=== PATIENT | female | born 1985 | race Two or more races ===

== ENCOUNTER 2017-11-13 07:56 | Emergency (ER) | payer OTHER ==
[2017-11-13 08:00] VITALS: TEMP 98; BMI 45.8
--- NOTE | 2017-11-13 08:05 | PDOC ---
History of Present Illness - General Chief Complaint: Pain Stated Complaint: LOWER ABD PAIN Time Seen by Provider: 11/13/17 08:04 - History of Present Illness Initial Comments: 11/13/17 08:04 Ms. Mcdonald is a 32 yo female w/ pmh of hyperthyroidism (not currently taking medications as she has run out, however has appt with PCP 2 weeks from today scheduled) who presents c/o a 3 day history of left sided abdominal pain she reports feels "like a bag that bursts" intermittently every 10 minutes or so. She reports this pain gets worse when she walks around. Denies any recent changes in urinating or bowel movements, but reports this started after she held her urine for a long time. The patient denies chest pain, shortness of breath, headache and dizziness. Denies fever, chills, nausea, vomit, diarrhea and constipation. Denies dysuria, frequency, urgency and hematuria. Allergies: NKDA Past History - Past Medical History Allergies/Adverse Reactions: Allergies Allergy/AdvReac Type Severity Reaction Status Date / Time No Known Allergies Allergy Verified 11/13/17 07:58 Home Medications: Ambulatory Orders Levothyroxine [Synthroid -] 88 mcg PO DAILY 03/11/14 Cephalexin [Keflex] 500 mg PO BID #10 capsule 11/13/17 Asthma: No Cancer: No Cardiac Disorders: No COPD: No Diabetes: No HTN: No Seizures: No Thyroid Disease: No - Surgical History Cholecystectomy: Yes - Immunization History Immunization Up to Date: Yes - Suicide/Smoking/Psychosocial Hx Smoking History: Never smoked Have you smoked in the past 12 months: No Information on smoking cessation initiated: No Hx Alcohol Use: No Drug/Substance Use Hx: No Substance Use Type: None Hx Substance Use Treatment: No Review of Systems - Review of Systems Comments:: 11/13/17 08:04 GENERAL/CONSTITUTIONAL: No fever or chills. No weakness. HEAD, EYES, EARS, NOSE AND THROAT: No change in vision. No ear pain or discharge. No sore throat. CARDIOVASCULAR: No chest pain or shortness of breath RESPIRATORY: No cough, wheezing, or hemoptysis. GASTROINTESTINAL: +LLQ pain as described. No nausea, vomiting, diarrhea or constipation. GENITOURINARY: No dysuria, frequency, or change in urination. MUSCULOSKELETAL: No joint or muscle swelling or pain. No neck or back pain. SKIN: No rash NEUROLOGIC: No headache, vertigo, loss of consciousness, or change in strength/ sensation. ENDOCRINE: No increased thirst. No abnormal weight change HEMATOLOGIC/LYMPHATIC: No anemia, easy bleeding, or history of blood clots. ALLERGIC/IMMUNOLOGIC: No hives or skin allergy. 11/13/17 08:21 *Physical Exam - Vital Signs Last Vital Signs Temp Pulse Resp BP Pulse Ox 98.0 F 90 18 130/68 100 11/13/17 07:59 11/13/17 07:59 11/13/17 07:59 11/13/17 07:59 11/13/17 07:59 - Physical Exam Comments: 11/13/17 08:05 GENERAL: Awake, alert, and fully oriented, in no acute distress HEAD: No signs of trauma, normocephalic, atraumatic EYES: PERRLA, EOMI, sclera anicteric, conjunctiva clear ENT: Auricles normal inspection, hearing grossly normal, nares patent, oropharynx clear without exudates. Moist mucosa NECK: Normal ROM, supple, no lymphadenopathy, JVD, or masses LUNGS: No distress, speaks full sentences, clear to auscultation bilaterally HEART: Regular rate and rhythm, normal S1 and S2, no murmurs, rubs or gallops, peripheral pulses normal and equal bilaterally. ABDOMEN: +LLQ TTP, otherwise soft, nontender, normoactive bowel sounds. No guarding, no rebound. No masses EXTREMITIES: Normal inspection, Normal range of motion, no edema. No clubbing or cyanosis. NEUROLOGICAL: Cranial nerves II through XII grossly intact. Normal speech, normal gait, no focal sensorimotor deficits SKIN: Warm, Dry, normal turgor, no rashes or lesions noted. : ED Treatment Course - LABORATORY CBC & Chemistry Diagram: 11/13/17 08:34 11/13/17 08:34 Medical Decision Making - Medical Decision Making 11/13/17 09:06 Ms. Reyes is a 32 yo female w/ pmh as described who presents for evaluation of left sided abdominal pain for the last 3 days. Patient exam concerning for left adnexal tenderness concerning for torsion. Labs/urine/transvaginal US ordered for evaluation. 11/13/17 11:23 US negative for torsion. UA suspicious for UTI as below. Treatment started with keflex in ER and Rx sent to patient's pharmacy for continued treatment. Discharging patient to home. Laboratory Results - last 24 hr 11/13/17 11/13/17 11/13/17 08:34 08:34 08:34 WBC 10.5 H RBC 4.63 Hgb 14.3 D Hct 41.1 D MCV 88.8 MCH 31.0 MCHC 34.9 RDW 13.9 Plt Count 259 MPV 8.2 Absolute Neuts (auto) 7.0 Neutrophils % 66.9 Lymphocytes % 25.0 Monocytes % 6.1 Eosinophils % 1.6 Basophils % 0.4 Nucleated RBC % 0 Sodium 136 Potassium 4.3 Chloride 104 Carbon Dioxide 28 Anion Gap 4 L BUN 9 Creatinine 0.6 Creat Clearance w eGFR > 60 Random Glucose 100 Calcium 8.9 Total Bilirubin 1.6 H D AST 45 H ALT 78 Alkaline Phosphatase 81 Total Protein 7.8 Albumin 4.0 TSH Urine Color Dk yellow Urine Appearance Cloudy Urine pH 6.0 Ur Specific [place] 1.029 Urine Protein 1+ H Urine Glucose (UA) Negative Urine Ketones Negative Urine Blood Negative Urine Nitrite Positive Urine Bilirubin Negative Urine Urobilinogen 4.0 e.u/dl H Ur Leukocyte Esterase Negative Urine WBC (Auto) 13 Urine RBC (Auto) 1 Ur Epithelial Cells Moderate Urine Bacteria Many Urine Mucus Many Urine HCG, Qual Negative 11/13/17 08:34 WBC RBC Hgb Hct MCV MCH MCHC RDW Plt Count MPV Absolute Neuts (auto) Neutrophils % Lymphocytes % Monocytes % Eosinophils % Basophils % Nucleated RBC % Sodium Potassium Chloride Carbon Dioxide Anion Gap BUN Creatinine Creat Clearance w eGFR Random Glucose Calcium Total Bilirubin AST ALT Alkaline Phosphatase Total Protein Albumin TSH 12.70 H Urine Color Urine Appearance Urine pH Ur Specific [place] Urine Protein Urine Glucose (UA) Urine Ketones Urine Blood Urine Nitrite Urine Bilirubin Urine Urobilinogen Ur Leukocyte Esterase Urine WBC (Auto) Urine RBC (Auto) Ur Epithelial Cells Urine Bacteria Urine Mucus Urine HCG, Qual *DC/Admit/Observation/Transfer Diagnosis at time of Disposition: UTI (urinary tract infection) Qualifiers: Urinary tract infection type: site unspecified Hematuria presence: without hematuria Qualified Code(s): N39.0 - Urinary tract infection, site not specified - Discharge Dispostion Disposition: HOME - Prescriptions Prescriptions: Cephalexin [Keflex] 500 mg PO BID #10 capsule - Referrals Referrals: Carmen Mckeon [Primary Care Provider] - - Patient Instructions Printed Discharge Instructions: DI for Urinary Tract Infection (UTI) Additional Instructions: Please follow-up with primary care provider for further evaluation of abdominal pain. Take all medication as proscribed. Return to ER if any fever, chills, increased pain, or other concerning symptoms. - Post Discharge Activity
--- NOTE | 2017-11-13 08:30 | PDOC ---
Attending Attestation - Resident Resident Name: Benjamin Ott - ED Attending Attestation I have performed the following: I have examined & evaluated the patient, The case was reviewed & discussed with the resident, I agree w/resident's findings & plan, Exceptions are as noted
[2017-11-13 08:58] LABS: BASO % 0.4 % (0-2.0); EOS % 1.6 % (0-4.5); HEMATOCRIT 41.1 % (32.4-45.2); HEMOGLOBIN 14.3 GM/dL (10.7-15.3); MCHC 34.9 g/dl (32.0-36.0); MEAN CELL VOLUME 88.8 fl (80-96); MEAN PLT VOLUME 8.2 fl (7.5-11.1); MONO % 6.1 % (3.8-10.2); NEUT % 66.9 % (42.8-82.8); PLATELET COUNT 259 K/MM3 (134-434); RBC 4.63 M/mm3 (3.60-5.2); RDW 13.9 % (11.6-15.6); WHITE BLOOD COUNT 10.5 K/mm3 (4.0-10.0)
[2017-11-13 09:19] LABS: HCG,QUALITATIVE URINE NEGATIVE
[2017-11-13 09:24] LABS: URINE APPEARANCE CLOUDY; URINE BILIRUBIN NEGATIVE (<2.0 mg/dL); URINE BLOOD NEGATIVE (NEGATIVE); URINE GLUCOSE (UA) NEGATIVE (NEGATIVE); URINE KETONE NEGATIVE (NEGATIVE); URINE LEUK ESTERASE NEGATIVE (NEGATIVE); URINE NITRITE POSITIVE (NEGATIVE); URINE UROBILINOGEN 4.0 E.U/dl mg/dL (0.2-1.0)
[2017-11-13 09:25] LABS: ANION GAP 4 (8-16); BILIRUBIN,TOTAL 1.6 mg/dL (0.2-1.0); BLOOD UREA NITROGEN 9 mg/dL (7-18); CALCIUM 8.9 mg/dL (8.5-10.1); CHLORIDE 104 mmol/L (98-107); CO2 28 mmol/L (21-32); CREATININE 0.6 mg/dL (0.55-1.02); GLUCOSE,RANDOM 100 mg/dL (74-106); POTASSIUM 4.3 mmol/L (3.5-5.1); SGOT/AST 45 U/L (15-37); SGPT/ALT 78 U/L (12-78); SODIUM 136 mmol/L (136-145); TOT PROT 7.8 g/dl (6.4-8.2)
[2017-11-13 09:26] LABS: ALK PHOS 81 U/L (45-117); URINE COLOR DK YELLOW; URINE PROTEIN 1+ (NEGATIVE)
[2017-11-13 09:46] LABS: EPI CELLS MODERATE /HPF (FEW); URINE BACTERIA MANY /hpf (NONE SEEN); URINE MUCUS MANY
[2017-11-13] MEDS ORDERED: CEPHALEXIN MONOHYDRATE 500 MG CAPSULE (UD) PO ONE (10:07)
[2017-11-13] MEDS ORDERED: CEPHALEXIN MONOHYDRATE 500 MG CAPSULE (UD) ONE (10:12)
[2017-11-13 11:59] VITALS: BP 128/82; PULSE 78
--- NOTE | 2017-11-15 07:56 | PDOC ---
Patient Follow-up (Call Back) - Post ED Follow - Up Disposition at time of original discharge: HOME Reason for Call Back: Abnwl. Microbiology (Urine culture preliminary report shows group D strep or enterococcus. Patient currently on Keflex. Will await final report.)
--- NOTE | 2017-11-16 07:22 | PDOC ---
Patient Follow-up (Call Back) - Post ED Follow - Up Disposition at time of original discharge: HOME Reason for Call Back: Abnwl. Microbiology (Urine culture final report shows enterococcus faecalis which is not sensitive to cephalosporins. Called and left message for patient to call back. Patient had sensitivity to Macrobid and Levaquin.)
--- NOTE | 2017-11-16 09:28 | PDOC ---
Patient Follow-up (Call Back) - Post ED Follow - Up Disposition at time of original discharge: HOME - Disposition Additional Instructions/Notes: patient called back. UTI not sensitive to her current abx. Will send rx for macrobid. Patient will bead picker today, d/c current abx and start macrobid
== END 2017-11-13 11:59 | disposition home or self-care (01) ==
LOC: JER 07:56
DX: N39.0 Urinary tract infection, site not specified (principal)
CPT/HCPCS: 36415; 76830-TC; 80053; 81003; 81015; 84443; 84703; 85025; 87086; 87186; 99282-25

== ENCOUNTER 2018-12-10 15:50 | Emergency (ER) | payer OTHER ==
--- NOTE | 2018-12-10 15:58 | PDOC ---
Rapid Medical Evaluation Chief Complaint: Lightheaded Medical Evaluation: Allergies Allergy/AdvReac Type Severity Reaction Status Date / Time No Known Allergies Allergy Verified 11/13/17 07:58 12/10/18 15:55 The patient is a 33 y/o F who presents with 3 days of dizziness. she states that the room is spinning around her even when she is lying down. Admits to associated vomiting. This is never happened to her before. Exam patient sitting, gait not observed. In mild distress appears uncomfortable. ANO 3 Orders EKG, basic labs, urine Patient to proceed to the ER for further evaluation. Discharge Disposition - Diagnosis Dizziness - Referrals - Patient Instructions - Post Discharge Activity
[2018-12-10 16:06] VITALS: BP 111/67; PULSE 76; TEMP 98; BMI 46.8
[2018-12-10 16:15] LABS: BASO % 0.8 % (0-2.0); EOS % 1.6 % (0-4.5); HEMATOCRIT 42.1 % (32.4-45.2); HEMOGLOBIN 14.6 GM/dL (10.7-15.3); LYMPH % 21.3 % (8-40); MCH 31.1 pg (25.7-33.7); MCHC 34.7 g/dl (32.0-36.0); MEAN CELL VOLUME 89.7 fl (80-96); MEAN PLT VOLUME 8.3 fl (7.5-11.1); MONO % 4.3 % (3.8-10.2); PLATELET COUNT 249 K/MM3 (134-434); RBC 4.69 M/mm3 (3.60-5.2); RDW 14.4 % (11.6-15.6); WHITE BLOOD COUNT 7.1 K/mm3 (4.0-10.0)
[2018-12-10 16:55] LABS: BILIRUBIN,TOTAL 1.1 mg/dL (0.2-1); BLOOD UREA NITROGEN 10.4 mg/dL (7-18); CREATININE 0.6 mg/dL (0.55-1.3); POTASSIUM 4.5 mmol/L (3.5-5.1); TOT PROT 8.1 g/dl (6.4-8.2)
[2018-12-10] MEDS ORDERED: SODIUM CHLORIDE 0.9% 500 ML INFUS.BAG IV ONE (17:48)
[2018-12-10] MEDS ORDERED: MECLIZINE HCL 12.5 MG TABLET PO ONE (17:48)
--- NOTE | 2018-12-10 18:14 | PDOC ---
History of Present Illness - General Chief Complaint: Lightheaded Stated Complaint: DIZZNESS Time Seen by Provider: 12/10/18 15:55 History Source: Patient Exam Limitations: No Limitations - History of Present Illness Initial Comments: 12/10/18 17:59 Carmen Reyes is a 33F with PMH of hypothyroidism who presents with dizziness with nausea and vomiting. Reports being in a normal state of health prior to Friday, when she was brushing her teeth at night and began to feel as if the room is spinning, vomited once. Laid flat in bed and recovered overnight, was feeling more normal the next day, able to drive and do chores. This morning woke up with worsening dizziness and nausea and vomited x4 which prompted visit to ED. Describes dizziness as vertigo, as if the room is spinning around her. Has never had this sensation before, denies any actions or activities that could prompt it. Denies fever/chills, headache, tinnitus, chest pain, palpitations, SOB, cough. No recent abnormal food exposures, PO intake good until first episode, denies abd pain, constipation/diarrhea. No dysuria/hematuria/frequency. Describes being able to walk with some assistance. PMH hypothyroidism, has not taken levothyroxine in ~8 months due to no f/u with endo, describes being cold all the time with some weight gain and difficulty losing weight. No other PMH or medications. Past History - Past Medical History Allergies/Adverse Reactions: Allergies Allergy/AdvReac Type Severity Reaction Status Date / Time No Known Allergies Allergy Verified 12/10/18 16:04 Home Medications: Ambulatory Orders Meclizine HCl [Antivert -] 12.5 mg PO TID #15 tablet 12/10/18 Asthma: No Cancer: No Cardiac Disorders: No COPD: No Diabetes: No HTN: No Seizures: No Thyroid Disease: No - Surgical History Cholecystectomy: Yes - Immunization History Immunization Up to Date: Yes - Suicide/Smoking/Psychosocial Hx Smoking History: Never smoked Have you smoked in the past 12 months: No Information on smoking cessation initiated: No Hx Alcohol Use: No Drug/Substance Use Hx: No Substance Use Type: None Hx Substance Use Treatment: No Review of Systems - Review of Systems Able to Perform ROS?: Yes Constitutional: Yes: See HPI, Chills, Loss of Appetite. No: Diaphoresis, Fever , Weakness HEENTM: Yes: See HPI, Double Vision. No: Blurred Vision, Recent change in vision, Tinnitus, Hearing Loss Respiratory: Yes: See HPI. No: Cough, Orthopnea, Shortness of Breath, Productive cough Cardiac (ROS): Yes: See HPI. No: Chest Pain, Edema, Lightheadedness, Palpitations, Syncope, Chest Tightness ABD/GI: Yes: See HPI, Nausea, Poor Appetite, Poor Fluid Intake, Vomiting. No: Constipated, Diarrhea, Abdominal cramping : No: Burning, Dysuria, Discharge, Frequency, Hematuria Musculoskeletal: No: Back Pain, Muscle Pain, Muscle Weakness Integumentary: No: Pallor, Rash, Sweating Neurological: Yes: Unsteady Gait, Dizziness. No: Headache, Numbness, Paresthesia, Tremors Endocrine: Yes: Intolerance to Cold *Physical Exam - Vital Signs Last Vital Signs Temp Pulse Resp BP Pulse Ox 98.0 F 76 16 111/67 100 12/10/18 15:50 12/10/18 15:50 12/10/18 15:50 12/10/18 15:50 12/10/18 15:50 - Physical Exam General Appearance: Yes: Nourished, Appropriately Dressed, Apparent Distress, Mild Distress, Obese HEENT: positive: ALEC, Normal ENT Inspection, Normal Voice, Symmetrical. negative: Scleral Icterus (R), Scleral Icterus (L), Rhinorrhea, Sinus Tenderness Neck: positive: Trachea midline, Supple Respiratory/Chest: positive: Lungs Clear, Normal Breath Sounds. negative: Chest Tender, Respiratory Distress, Rales, Rhonchi, Wheezing Cardiovascular: positive: Regular Rhythm, Regular Rate. negative: Edema, Murmur Gastrointestinal/Abdominal: positive: Normal Bowel Sounds, Soft. negative: Tender, Hernia, Mass Musculoskeletal: positive: Normal Inspection. negative: CVA Tenderness Extremity: positive: Normal Capillary Refill, Normal Inspection, Normal Range of Motion. negative: Tender Integumentary: positive: Normal Color, Dry, Warm. negative: Jaundice Neurologic: positive: physiatrist II-XII NML intact, Fully Oriented, Alert, Normal Mood/ Affect, Normal Response, Motor Strength 5/5 ED Treatment Course - LABORATORY CBC & Chemistry Diagram: 12/10/18 16:03 12/10/18 16:08 - ADDITIONAL ORDERS Additional order review: Laboratory Results 12/10/18 12/10/18 16:57 16:08 Sodium 139 Potassium 4.5 Chloride 107 Carbon Dioxide 27 Anion Gap 5 L BUN 10.4 Creatinine 0.6 Est GFR (CKD-EPI)AfAm 139.78 Est GFR (CKD-EPI)NonAf 120.61 Random Glucose 92 Calcium 9.0 Total Bilirubin 1.1 H AST 71 H ALT 128 H Alkaline Phosphatase 81 Total Protein 8.1 Albumin 4.0 Serum , Qual Negative 12/10/18 16:03 RBC 4.69 MCV 89.7 MCHC 34.7 RDW 14.4 MPV 8.3 Neutrophils % 72.0 Lymphocytes % 21.3 Monocytes % 4.3 Eosinophils % 1.6 Basophils % 0.8 Medical Decision Making - Medical Decision Making 12/10/18 20:42 Carmen Reyes is a 33F with PMH hypothyroidism presenting with dizziness. Given presentation with vertigo-like symptoms, lack of palpitations/chest pain/ cough/SOB, and stable VS, unlikely to be cardiac in origin. Will evaluate for electrolyte imbalance via CMP, anemia via CBC, arrhythmia via ECG, and thyroid imbalance with TSH. Evaluation for intracranial mass or bleed via CT head. Will trial meclizine and IVF 1L NS bolus for nausea. Patient reports feeling worse after CT scan, now with headache. Will trial acetaminophen 1g IV with 10mg metaclopramide for further headache control. Received valium for further management of vertigo 12/10/18 23:44 Re-evaluated. Patient is no longer feeling headache or vertigo. Able to stand and walk across room unassisted and without dizziness/nausea. Will discharge home with f/u neurology, will provide meclizine script for nausea if needed. *DC/Admit/Observation/Transfer Diagnosis at time of Disposition: Dizziness - Discharge Dispostion Disposition: HOME Condition at time of disposition: Improved Decision to Admit order: No - Prescriptions Prescriptions: Meclizine HCl [Antivert -] 12.5 mg PO TID #15 tablet - Referrals Referrals: Carmen Mckeon [Primary Care Provider] - Polo Cardenas MD [Staff Physician] - - Patient Instructions Printed Discharge Instructions: DI for Dizziness-Nonvertigo, Vertigo Additional Instructions: Please return to an emergency room for any recurrent, new, or worsening symptoms. Today you were evaluated for dizziness. We checked your blood for problems with electrolytes or anemia or infection, but all results were normal. We performed an EKG to assess your heart rhythm, but it was normal. We also did a CT scan of your head to check for any issues inside your brain, but everything was normal. You were given a medication called meclizine as well as some saline for your nausea. We also give you some tylenol, reglan, and Valium for your headache and dizziness, and you felt improved after this treatment. You are getting a referral to Dr. Cardenas, a neurologist. Please see this doctor if you continue to have dizziness or worsening nausea. If you have worsening nausea to the point that you cannot walk or function, or if you get a fever, pain, or headache, please return to an emergency room immediately. - Post Discharge Activity
[2018-12-10] MEDS ORDERED: MECLIZINE HCL 12.5 MG TABLET ONE (18:28)
--- NOTE | 2018-12-10 18:43 | PDOC ---
Documentation entered by Gladys Callahan SCRIBE, acting as scribe for Debbie Lemon MD. Debbie Lemon MD: This documentation has been prepared by the [place] staton Nirvannie, SCRIBE, under my direction and personally reviewed by me in its entirety. I confirm that the documentation accurately reflects all work, treatment, procedures, and medical decision making performed by me. Attending Attestation - Resident Resident Name: JulianStanley - ED Attending Attestation I have performed the following: I have examined & evaluated the patient, The case was reviewed & discussed with the resident, I agree w/resident's findings & plan - HPI HPI: 12/10/18 18:02 The patient is a 33 year old female, with a significant past medical history of hypothyroidism (noncompliant with medications), who presents to the emergency department with, 3 days of intermittent dizziness. She describes her dizziness as room spinning worsened when standing up with associated nausea and vomiting. She denies recent fevers or chills. She denies recent diarrhea or constipation. She denies recent dysuria, frequency, urgency or hematuria. She denies recent chest pain or shortness of breath. Allergies: NKDA Primary Care Physician: Dr. Mckeon - Physicial Exam PE: 12/10/18 18:31 GENERAL: The patient is in no acute distress. ENT: Ears normal, nares patent, oropharynx clear without exudates. Moist mucous membranes. NECK: Normal range of motion, supple, non tender LUNGS: Breath sounds equal, clear to auscultation bilaterally. No wheezes, and no crackles. HEART:Regular rate and rhythm, normal S1 and S2 without murmur, rub or gallop. ABDOMEN: Soft, nontender, normoactive bowel sounds. EXTREMITIES: Normal range of motion, no edema. NEUROLOGICAL: Cranial nerves II through XII grossly intact. Normal speech. (+) horizontal nystagmus no dysmetria, no dysdiadokinesis did not ambulate at this time SKIN: Warm, Dry, normal turgor, no rashes or lesions noted. - Medical Decision Making 12/10/18 16:17 EKG- NSR rate of 66 bpm, axis nml, intervals nml, no st elevation or depression , t waves upright 07/04/19 18:41 33 yo F presenting with vertigo Symptoms began 3 days ago No symptoms yesterday Awoke with symptoms today Mild headache (+) nausea (+) vomiting no weakness No prior episodes like this No recent URI DD: BPPV, Labrynthitis, Menier's disease, acoustic neuroma, vertebral dissection ( unlikely), cerebellar cva (unlikely) Will do: Labs Meclizine CT If symptoms persist or worsen consider CTA head and neck/OBS Pt signed out to overnight team Clinical impression: vertigo, initial presentation
[2018-12-10] MEDS ORDERED: ACETAMINOPHEN 1000 MG/100 ML VIAL (NON FORMULARY) IVPB ONE (19:14)
[2018-12-10] MEDS ORDERED: METOCLOPRAMIDE HCL INJECTION 10 MG/2 ML VIAL IVPB ONE (19:14)
[2018-12-10] MEDS ORDERED: METOCLOPRAMIDE HCL INJECTION 10 MG/2 ML VIAL ONE (20:16)
[2018-12-10] MEDS ORDERED: ACETAMINOPHEN INJECTION 100 ML IVPB ONE (20:16)
[2018-12-10] MEDS ORDERED: diazePAM 2 MG TABLET PO ONE (20:57)
[2018-12-10] MEDS ORDERED: SODIUM CHLORIDE 1,000 ML IV STA (20:57)
[2018-12-10] MEDS ORDERED: diazePAM 2 MG TABLET ONE (21:05)
--- NOTE | 2018-12-11 11:24 | EKG ---
Test Reason : Blood Pressure : / mmHG Vent. Rate : 066 BPM Atrial Rate : 066 BPM P-R Int : 158 ms QRS Dur : 110 ms QT Int : 406 ms P-R-T Axes : 013 038 025 degrees QTc Int : 425 ms NORMAL SINUS RHYTHM INCOMPLETE RIGHT BUNDLE BRANCH BLOCK ABNORMAL ECG NO PREVIOUS ECGS AVAILABLE Confirmed by ALESIA SERVIN MD ([id number]) on 12/11/2018 11:24:09 AM Referred By: Confirmed By:ALESIA SERVIN MD
== END 2018-12-11 00:58 | disposition home or self-care (01) ==
LOC: JER 15:50
PROC: 3E0337Z Introduction of Electrolytic and Water Balance Substance into Peripheral Vein, Percutaneous Approach (ICD-10-PCS; principal; 2018-12-10)
PROC: 3E033GC Introduction of Other Therapeutic Substance into Peripheral Vein, Percutaneous Approach (ICD-10-PCS; 2018-12-10)
DX: R42 Dizziness and giddiness (principal); E03.9 Hypothyroidism, unspecified
CPT/HCPCS: 36415; 70450-TC; 80053; 84443; 84703; 85025; 93005; 93010; 99283-25; J7030

== ENCOUNTER 2022-03-06 11:39 | Emergency (ER) | payer OTHER ==
[2022-03-06 11:55] VITALS: BP 135/73; PULSE 88; RESP 17; TEMP 98.1; BMI 50.8
[2022-03-06 13:04] LABS: PH,URINE 6.5 (5.0-8.0); URINE APPEARANCE CLOUDY; URINE BILIRUBIN NEGATIVE (NEGATIVE); URINE COLOR YELLOW; URINE GLUCOSE (UA) NEGATIVE (NEGATIVE); URINE KETONE NEGATIVE (NEGATIVE); URINE LEUK ESTERASE NEGATIVE (NEGATIVE); URINE NITRITE NEGATIVE (NEGATIVE); URINE PROTEIN NEGATIVE (NEGATIVE)
[2022-03-06 13:06] LABS: HCG,QUALITATIVE URINE Negative
[2022-03-06] MEDS ORDERED: SODIUM CHLORIDE 1,000 ML IV STA (13:29)
[2022-03-06] MEDS ORDERED: ACETAMINOPHEN 1000 MG/100 ML BAG IVPB ONE (13:29)
[2022-03-06] MEDS ORDERED: ACETAMINOPHEN INJECTION 100 ML IVPB ONE (13:35)
[2022-03-06 14:41] LABS: BASO % 0.6 % (0-2.0); EOS % 1.7 % (0-4.5); HEMATOCRIT 41.1 % (32.4-45.2); HEMOGLOBIN 14.7 GM/dL (10.7-15.3); LYMPH % 22.1 % (8-40); MCH 32.2 pg (25.7-33.7); MCHC 35.8 g/dl (32.0-36.0); MEAN CELL VOLUME 90.1 fl (80-96); MEAN PLT VOLUME 8.6 fl (7.5-11.1); MONO % 4.2 % (3.8-10.2); NEUT % 71.4 % (42.8-82.8); PLATELET COUNT 281 10^3/uL (134-434); RBC 4.56 M/mm3 (3.60-5.2); RDW 13.8 % (11.6-15.6); WHITE BLOOD COUNT 10.1 K/mm3 (4.0-10.0)
[2022-03-06 14:54] LABS: CALCIUM 9.5 mg/dL (8.5-10.1)
[2022-03-06 14:55] LABS: ALBUMIN 4.1 g/dl (3.4-5.0); BLOOD UREA NITROGEN 7.5 mg/dL (7-18)
[2022-03-06 14:58] LABS: CREATININE 0.6 mg/dL (0.55-1.3)
[2022-03-06 15:00] LABS: BILIRUBIN,TOTAL 1.6 mg/dL (0.2-1); TOT PROT 8.1 g/dl (6.4-8.2)
== END 2022-03-06 16:30 | disposition home or self-care (01) ==
LOC: JERFT 11:39 → JER 11:39 → JERFT 16:30
PROC: 3E0333Z Introduction of Anti-inflammatory into Peripheral Vein, Percutaneous Approach (ICD-10-PCS; principal; 2022-03-06)
PROC: 3E0337Z Introduction of Electrolytic and Water Balance Substance into Peripheral Vein, Percutaneous Approach (ICD-10-PCS; 2022-03-06)
DX: K57.92 Diverticulitis of intestine, part unspecified, without perforation or abscess without bleeding (principal)
CPT/HCPCS: 36415; 74177-TC; 80053; 81003; 83690; 84703; 85025; 87086; 99285-25; Q9967

== ENCOUNTER 2023-06-25 09:12 | Emergency (ER) | payer OTHER ==
[2023-06-25 09:19] VITALS: BP 126/72; PULSE 79; RESP 17; TEMP 98.1; BMI 48.8
== END 2023-06-25 10:24 | disposition home or self-care (01) ==
LOC: JERFT 09:12 → JER 09:12 → JERFT 10:24
DX: M25.562 Pain in left knee (principal); W01.0XXA Fall on same level from slipping, tripping and stumbling without subsequent striking against object, initial encounter
CPT/HCPCS: 73562-TC-LT-FY; 99283-25

== ENCOUNTER 2023-12-08 21:50 | Emergency (ER) | payer OTHER ==
[2023-12-08 22:10] VITALS: BP 125/73; PULSE 94; RESP 20; TEMP 98.5; BMI 51.7
[2023-12-08 23:40] LABS: BASO % 0.9 % (0-2.0); EOS % 3.7 % (0-4.5); HEMATOCRIT 38.1 % (32.4-45.2); HEMOGLOBIN 13.5 GM/dL (10.7-15.3); LYMPH % 37.2 % (8-40); MCH 31.7 pg (25.7-33.7); MCHC 35.5 g/dl (32.0-36.0); MEAN CELL VOLUME 89.3 fl (80-96); MEAN PLT VOLUME 7.8 fl (7.5-11.1); MONO % 7.2 % (3.8-10.2); PLATELET COUNT 266 10^3/uL (134-434); RBC 4.27 M/mm3 (3.60-5.2); WHITE BLOOD COUNT 7.2 K/mm3 (4.0-10.0)
[2023-12-08 23:56] LABS: CHLORIDE 109 mmol/L (98-107); POTASSIUM 4.2 mmol/L (3.5-5.1); SODIUM 142 mmol/L (136-145)
[2023-12-08 23:58] LABS: CALCIUM 8.6 mg/dL (8.5-10.1)
[2023-12-08 23:59] LABS: ALBUMIN 3.6 g/dl (3.4-5.0); ANION GAP 3 mmol/L (4-13); CO2 29 mmol/L (21-32); GLUCOSE,RANDOM 106 mg/dL (74-106)
[2023-12-09 00:02] LABS: CREATININE 0.7 mg/dL (0.55-1.3); SGOT/AST 28 U/L (15-37); SGPT/ALT 59 U/L (13-61)
[2023-12-09 00:03] LABS: TOT PROT 7.7 g/dl (6.4-8.2)
[2023-12-09 00:04] LABS: BILIRUBIN,TOTAL 0.6 mg/dL (0.2-1)
[2023-12-09 00:05] LABS: ALK PHOS 109 U/L (45-117)
== END 2023-12-09 04:54 | disposition home or self-care (01) ==
LOC: JER 21:50
DX: R10.32 Left lower quadrant pain (principal); N92.6 Irregular menstruation, unspecified; N93.9 Abnormal uterine and vaginal bleeding, unspecified
CPT/HCPCS: 36415; 76830-TC; 80053; 84702; 85025; 99284-25

== ENCOUNTER 2024-01-18 18:50 | Emergency (ER) | payer OTHER ==
[2024-01-18 18:56] VITALS: BP 124/77; PULSE 91; RESP 20; TEMP 98.7; BMI 52.7
[2024-01-18] MEDS ORDERED: ONDANSETRON *ODT* 4 MG TABLET ONE (19:39)
[2024-01-18] MEDS ORDERED: ACETAMINOPHEN 325 MG TABLET (FP) ONE (19:39)
[2024-01-18] MEDS: ACETAMINOPHEN 325 MG TABLET (FP) PO ONE (19:44)
[2024-01-18] MEDS: ONDANSETRON *ODT* 4 MG TABLET SL ONE (19:44)
[2024-01-18 19:57] LABS: EPI CELLS 25 /uL (0-25.1); HYALINE CASTS 0 /uL (0-3.1); URINE APPEARANCE CLEAR; URINE BACTERIA 298 /uL (0-1359); URINE BILIRUBIN NEGATIVE (NEGATIVE); URINE COLOR YELLOW; URINE GLUCOSE (UA) NEGATIVE (NEGATIVE); URINE KETONE NEGATIVE (NEGATIVE); URINE LEUK ESTERASE NEGATIVE (NEGATIVE); URINE NITRITE NEGATIVE (NEGATIVE); URINE PROTEIN NEGATIVE (NEGATIVE); URINE RBC 12 /uL (0-23.9); URINE WBC 12 /uL (0-25.8)
[2024-01-18 20:47] LABS: HCG,QUALITATIVE URINE Negative
[2024-01-18] MEDS ORDERED: IBUPROFEN 600 MG TABLET (FP) PO ONE (21:04)
[2024-01-18] MEDS: IBUPROFEN 600 MG TABLET (FP) PO ONE (21:14)
== END 2024-01-18 21:18 | disposition home or self-care (01) ==
LOC: JER 18:50
DX: N20.0 Calculus of kidney (principal); R10.30 Lower abdominal pain, unspecified; R30.0 Dysuria; R35.0 Frequency of micturition; R11.0 Nausea; R68.83 Chills (without fever)
CPT/HCPCS: 81003; 84703; 87086; 99283-25; Q0162